=== PATIENT | male | born 1980 | race Caucasian/White ===

== ENCOUNTER 2024-01-08 23:57 | Emergency (ER) | payer MEDICAID ==
[~2024-01-08] VITALS: Ht 172.7 cm; Wt 89.4 kg
[2024-01-09] MEDS ORDERED: IBUPROFEN 400 MG TABLET ONE (01:02)
[2024-01-09] MEDS: IBUPROFEN 400 MG TABLET PO ONE (01:06)
[2024-01-09 03:23] VITALS: BP 127/73; TEMP 97.7; O2SAT 96
== END 2024-01-09 03:23 | disposition home or self-care (01) ==
LOC: ER 01-09 00:08
DX: M54.9 Dorsalgia, unspecified (principal); F17.200 Nicotine dependence, unspecified, uncomplicated
CPT/HCPCS: 71100-TC; 73010-TC

== ENCOUNTER 2024-01-17 18:14 | Emergency (ER) | payer MEDICAID ==
[~2024-01-17] VITALS: Ht 172.7 cm; Wt 86.2 kg
[2024-01-17] MEDS ORDERED: KETOROLAC TROMETHAMINE 15 MG/ML VIAL ONE (19:18)
[2024-01-17 19:23] LABS: BASOPHILS % (AUTO) 0.5 % (0.0-2.0); EOSINOPHILS # (AUTO) 0.3 K/uL (0.0-0.7); EOSINOPHILS % (AUTO) 4.7 % (0.0-6.0); HEMATOCRIT 44 % (39-51); HEMOGLOBIN 15.2 g/dL (13.5-17.5); LYMPHOCYTES # (AUTO) 1.7 K/uL (0.8-4.8); LYMPHOCYTES % (AUTO) 29.5 % (20.0-44.0); MEAN CORPUSCULAR HEMOGLOBIN 30 PG (26.0-33.0); MEAN CORPUSCULAR HGB CONC 35 g/dl (31.0-36.0); MEAN CORPUSCULAR VOLUME 85 fL (80-96); MONOCYTES # (AUTO) 0.6 K/uL (0.1-1.30); MONOCYTES % (AUTO) 9.7 % (2.0-12.0); NEUTROPHILS # (AUTO) 3.2 K/uL (1.8-8.9); NEUTROPHILS % (AUTO) 55.6 % (43.0-81.0); PLATELET COUNT (AUTO) 180 K/uL (150-450); RED BLOOD CELL COUNT(AUTO) 5.12 MIL/uL (4.5-6.0); RED CELL DISTRIBUTION WIDTH 12.8 % (11.5-15.0); WHITE BLOOD COUNT (AUTO) 5.8 K/uL (4.3-11.0)
[2024-01-17] MEDS: KETOROLAC TROMETHAMINE 15 MG/ML VIAL IM ONE (19:23)
[2024-01-17 19:30] LABS: CALCIUM, SERUM 9.1 mg/dL (8.5-10.1); CARBON DIOXIDE 29 mmol/L (21-32); CHLORIDE 103 mmol/L (98-107); CREATININE 0.8 mg/dL (0.6-1.3); GLUCOSE 106 mg/dL (74-106); SODIUM SERUM 139 mmol/L (136-145); UREA NITROGEN, BLOOD 11 mg/dL (7-18)
[2024-01-17] MEDS ORDERED: METH-649 PO (21:38)
[2024-01-17] MEDS ORDERED: KETO10TA2 PO (21:38)
[2024-01-17 21:47] VITALS: BP 128/79; TEMP 98; O2SAT 97
== END 2024-01-17 21:47 | disposition home or self-care (01) ==
LOC: ER 18:19
DX: R07.89 Other chest pain (principal); R07.81 Pleurodynia; F17.200 Nicotine dependence, unspecified, uncomplicated
CPT/HCPCS: 99285; 71250; 96372; 93005; 71100; 85025; 80048; 36415; 84484; J1885